=== PATIENT | female | born 1935 | race Caucasian/White ===

== ENCOUNTER 2017-03-16 10:35 | Inpatient (IN) ==
[2017-03-16 11:37] LABS: Basophils % 0.4 % (0.0-0.8); Eosinophils % 0.3 % (0.00-10.9); Hematocrit 40.8 VOL% (35.7-47.0); Hemoglobin 13.6 GM/DL (12.0-16.0); Immature Granulocytes % 2.1 %; Immature Granulocytes Absolute 0.21 #; Lymphocytes % 10.1 % (21.3-54.2); Mean Corpuscular HGB Conc 33.3 GM/DL (32-36); Mean Corpuscular Hemoglobin 31 PG (27-34); Mean Platelet Volume 9.6 FL (9.6-12.0); Monocytes # 0.9 10*3/uL (0.11-0.8); Monocytes % 8.7 % (1.7-12.7); Neutrophils % 78.4 % (38.7-73.9); Platelet Count 197 T/CUMM (130-400); Red Blood Count 4.34 MC/CUMM (3.8-5.5); Red Cell Distribution Width 13.7 % (9.3-17.3); White Blood Count 10.2 T/CUMM (4-12)
[2017-03-16 11:49] LABS: Amorphous Crystals,Urine Occasional /HPF (Few); Apearance,Urine Slightly Hazy (Clear); Bacteria,Urine Few /HPF (Few); Bilirubin,Urine Negative (Negative); Blood, Urine Small mg/dL (Negative); Glucose,Urine (UA) Negative (Negative); Ketones,Urine Negative (Negative); Mucus,Urine Occasional /LPF (Occasional); Nitrite,Urine Negative (Negative); Protein,Urine >=500 MG/DL; Squamous Epithelial Cell,Urine Occasional /HPF (0-10); Urine Color Yellow (Yellow); Urine Specific Gravity 1.018 (1.001-1.035); Urine Urobilinogen < 2.0 EU/DL (0.2-1.0)
[2017-03-16 12:08] LABS: Albumin 2.7 G/DL (3.4-5.0); Bilirubin,Total 0.6 MG/DL (0.2-1.0); Calcium 8.2 MG/DL (8.5-10.1); Osmolality,Calculated 284.7 MOS/KG (273-304); Potassium 3.8 MMOL/L (3.5-5.1); Total Protein 6.2 G/DL (6.4-8.3)
[2017-03-16] MEDS ORDERED: LEVOFLOXACIN INJ 500 MG in PREMIX 1 EACH IV STA (13:17)
[2017-03-16] MEDS ORDERED: LEVOFLOXACIN INJ 100 ML IV ONE (13:20)
[2017-03-16] MEDS ORDERED: ALBUTEROL 2.5 MG/3 ML NEB RESP TX STA (15:12)
[2017-03-16] MEDS ORDERED: ALBUTEROL 2.5 MG/3 ML NEB RESP TX PRN (15:20)
[2017-03-16] MEDS ORDERED: DOCUSATE SODIUM 100 MG CAPSULE PO PRN (15:41)
[2017-03-16] MEDS ORDERED: GLUCAGON 1 MG VIAL IM PRN (16:45)
[2017-03-16] MEDS ORDERED: DEXTROSE 50% 25 GM/50 ML VIAL IV PRN (16:45)
[2017-03-16] MEDS: INSULIN LISPRO 100 UNIT/ML SUBCUT SCH ×2 (17:57→21:09)
[2017-03-16] MEDS ORDERED: VANCOMYCIN INJ 1,500 MG in SODIUM CHLORIDE 0.9% 500 ML IV SCH (18:00)
[2017-03-16] MEDS: methylPREDNISolone SOD SUC 40 MG/1 ML VIAL IV SCH ×2 (18:48→22:44)
[2017-03-16] MEDS: CEFEPIME 2,000 MG in SYRINGE 1 EACH IV SCH (18:51)
[2017-03-16] MEDS: AZITHROMYCIN INJ 500 MG in SODIUM CHLORIDE 0.9% 250 ML IV SCH (18:53)
[2017-03-16] MEDS: ASPIRIN EC 81 MG TABLET PO SCH (18:56)
[2017-03-16] MEDS ORDERED: ACETAMINOPHEN 325 MG TABLET PO PRN (19:16)
[2017-03-16] MEDS: ALBUTEROL/IPRATROPIUM 3 ML NEB RESP TX SCH (20:09)
[2017-03-16] MEDS ORDERED: NYSTATIN 500,000 UNIT/5 ML UDCUP SWISH/SWAL SCH (21:00)
[2017-03-16] MEDS: NYSTATIN 500,000 UNIT/5 ML UDCUP SWISH/SWAL SCH (21:08)
[2017-03-16] MEDS: OSELTAMIVIR 30 MG CAPSULE PO SCH (21:11)
[2017-03-16] MEDS: TRIAMCINOLONE 0.1% CREAM 15 GM TUBE TOP SCH (22:16)
[2017-03-17] MEDS: ALBUTEROL/IPRATROPIUM 3 ML NEB RESP TX SCH ×4 (00:53→19:22)
[2017-03-17] MEDS: methylPREDNISolone SOD SUC 40 MG/1 ML VIAL IV SCH ×3 (05:22→23:56)
[2017-03-17] MEDS: CEFEPIME 2,000 MG in SYRINGE 1 EACH IV SCH ×2 (05:23→17:34)
[2017-03-17 06:15] LABS: Basophils % 0.1 % (0.0-0.8); Hematocrit 36.3 VOL% (35.7-47.0); Hemoglobin 12.1 GM/DL (12.0-16.0); Immature Granulocytes % 2.1 %; Immature Granulocytes Absolute 0.16 #; Lymphocytes # 0.5 10*3/uL (1.4-4.0); Lymphocytes % 6.4 % (21.3-54.2); Mean Corpuscular HGB Conc 33.3 GM/DL (32-36); Mean Corpuscular Hemoglobin 31 PG (27-34); Mean Corpuscular Volume 92.6 FL (87-102); Mean Platelet Volume 9.7 FL (9.6-12.0); Monocytes # 0.1 10*3/uL (0.11-0.8); Monocytes % 1.2 % (1.7-12.7); Neutrophils % 90.2 % (38.7-73.9); Platelet Count 185 T/CUMM (130-400); Red Blood Count 3.92 MC/CUMM (3.8-5.5); Red Cell Distribution Width 13.4 % (9.3-17.3); White Blood Count 7.7 T/CUMM (4-12)
[2017-03-17 06:40] LABS: Calcium 8.1 MG/DL (8.5-10.1); Osmolality,Calculated 290.2 MOS/KG (273-304); Potassium 3.9 MMOL/L (3.5-5.1)
[2017-03-17] MEDS: INSULIN LISPRO 100 UNIT/ML SUBCUT SCH ×4 (08:10→20:45)
[2017-03-17] MEDS: ASPIRIN EC 81 MG TABLET PO SCH (08:11)
[2017-03-17] MEDS: METOPROLOL SUCCINATE XL 50 MG TABLET PO SCH (08:19)
[2017-03-17] MEDS: CHOLECALCIFEROL 1,000 UNIT TABLET PO SCH (08:19)
[2017-03-17] MEDS: NYSTATIN 500,000 UNIT/5 ML UDCUP SWISH/SWAL SCH ×4 (08:22→21:49)
[2017-03-17] MEDS: OSELTAMIVIR 30 MG CAPSULE PO SCH ×2 (08:36→23:56)
[2017-03-17] MEDS ORDERED: LEVOFLOXACIN INJ 250 MG in PREMIX 1 EACH IV SCH (13:30)
[2017-03-17] MEDS: ENOXAPARIN 30 MG/0.3 ML SYRINGE SUBCUT SCH (16:23)
[2017-03-17] MEDS: TRIAMCINOLONE 0.1% CREAM 15 GM TUBE TOP SCH (18:57)
[2017-03-17] MEDS: amLODIPine 5 MG TABLET PO SCH (18:59)
[2017-03-17] MEDS: AZITHROMYCIN INJ 500 MG in SODIUM CHLORIDE 0.9% 250 ML IV SCH (19:03)
[2017-03-17] MEDS: FAMOTIDINE 20 MG TABLET PO SCH (21:48)
[2017-03-17] MEDS: POTASSIUM CHLORIDE 20 MEQ TABLET PO SCH (21:49)
[2017-03-17] MEDS: FUROSEMIDE 20 MG TABLET PO SCH (21:49)
[2017-03-18] MEDS: ALBUTEROL/IPRATROPIUM 3 ML NEB RESP TX SCH ×4 (00:39→19:03)
[2017-03-18] MEDS: CEFEPIME 2,000 MG in SYRINGE 1 EACH IV SCH (04:49)
[2017-03-18] MEDS: TRIAMCINOLONE 0.1% CREAM 15 GM TUBE TOP SCH ×3 (05:32→21:56)
[2017-03-18 06:56] LABS: Calcium 8.5 MG/DL (8.5-10.1); Osmolality,Calculated 290.1 MOS/KG (273-304); Potassium 4.4 MMOL/L (3.5-5.1)
[2017-03-18 08:11] LABS: Basophils % 0.2 % (0.0-0.8); Hematocrit 35.4 VOL% (35.7-47.0); Hemoglobin 12.3 GM/DL (12.0-16.0); Immature Granulocytes % 1.2 %; Immature Granulocytes Absolute 0.22 #; Lymphocytes # 0.8 10*3/uL (1.4-4.0); Lymphocytes % 4.3 % (21.3-54.2); Mean Corpuscular HGB Conc 34.7 GM/DL (32-36); Mean Corpuscular Hemoglobin 31 PG (27-34); Mean Corpuscular Volume 89.8 FL (87-102); Monocytes # 0.6 10*3/uL (0.11-0.8); Neutrophils # 16.9 10*3/uL (1.4-7.4); Neutrophils % 91.3 % (38.7-73.9); Platelet Count 215 T/CUMM (130-400); Red Blood Count 3.94 MC/CUMM (3.8-5.5); Red Cell Distribution Width 13.2 % (9.3-17.3); White Blood Count 18.5 T/CUMM (4-12)
[2017-03-18] MEDS: INSULIN LISPRO 100 UNIT/ML SUBCUT SCH ×4 (08:37→21:56)
[2017-03-18 08:38] LABS: Band Neutrophils 3 % (0-10); Lymphocytes 3 % (20-55); Segmented Neutrophils 92 % (50-85); Total Cells Counted 100
[2017-03-18 08:39] LABS: Giant Platelets Few; Hypochromasia Slight; Ovalocytes Slight; Platelet Estimate Adequate
[2017-03-18] MEDS: NYSTATIN 500,000 UNIT/5 ML UDCUP SWISH/SWAL SCH ×4 (10:18→21:56)
[2017-03-18] MEDS: OSELTAMIVIR 30 MG CAPSULE PO SCH ×2 (10:18→21:56)
[2017-03-18] MEDS: FUROSEMIDE 20 MG TABLET PO SCH ×2 (10:20→21:56)
[2017-03-18] MEDS: ASPIRIN EC 81 MG TABLET PO SCH (10:20)
[2017-03-18] MEDS: CHOLECALCIFEROL 1,000 UNIT TABLET PO SCH (10:20)
[2017-03-18] MEDS: FAMOTIDINE 20 MG TABLET PO SCH ×2 (10:21→21:56)
[2017-03-18] MEDS: POTASSIUM CHLORIDE 20 MEQ TABLET PO SCH ×2 (10:21→21:55)
[2017-03-18] MEDS: METOPROLOL SUCCINATE XL 50 MG TABLET PO SCH (10:22)
[2017-03-18] MEDS: NYSTATIN OINT 15 GM TUBE TOP SCH (12:11)
[2017-03-18] MEDS: NYSTATIN POWDER 15 GM BOTTLE TOP SCH (12:11)
[2017-03-18] MEDS: CEFDINIR 300 MG CAPSULE PO SCH ×2 (12:14→21:56)
[2017-03-18] MEDS: predniSONE 20 MG TABLET PO SCH (12:15)
[2017-03-18] MEDS: AZITHROMYCIN 250 MG TABLET PO SCH (12:15)
[2017-03-18] MEDS: methylPREDNISolone SOD SUC 40 MG/1 ML VIAL IV SCH (16:53)
[2017-03-18] MEDS: ENOXAPARIN 30 MG/0.3 ML SYRINGE SUBCUT SCH (17:01)
[2017-03-18] MEDS: amLODIPine 5 MG TABLET PO SCH (17:02)
[2017-03-19] MEDS: ALBUTEROL/IPRATROPIUM 3 ML NEB RESP TX SCH ×5 (00:34→19:25)
[2017-03-19] MEDS: NYSTATIN POWDER 15 GM BOTTLE TOP SCH ×3 (04:53→20:47)
[2017-03-19] MEDS: NYSTATIN OINT 15 GM TUBE TOP SCH ×3 (04:53→20:47)
[2017-03-19] MEDS: INSULIN LISPRO 100 UNIT/ML SUBCUT SCH ×4 (08:23→20:46)
[2017-03-19] MEDS ORDERED: LEVOFLOXACIN 500 MG TABLET PO SCH (09:00)
[2017-03-19] MEDS: NYSTATIN 500,000 UNIT/5 ML UDCUP SWISH/SWAL SCH ×4 (09:04→20:45)
[2017-03-19] MEDS: POTASSIUM CHLORIDE 20 MEQ TABLET PO SCH ×2 (09:04→20:45)
[2017-03-19] MEDS: predniSONE 20 MG TABLET PO SCH (09:05)
[2017-03-19] MEDS: FAMOTIDINE 20 MG TABLET PO SCH ×2 (09:05→20:47)
[2017-03-19] MEDS: FUROSEMIDE 20 MG TABLET PO SCH ×3 (09:05→20:47)
[2017-03-19] MEDS: CHOLECALCIFEROL 1,000 UNIT TABLET PO SCH (09:05)
[2017-03-19] MEDS: ASPIRIN EC 81 MG TABLET PO SCH (09:05)
[2017-03-19] MEDS: OSELTAMIVIR 30 MG CAPSULE PO SCH (09:05)
[2017-03-19] MEDS: AZITHROMYCIN 250 MG TABLET PO SCH (09:05)
[2017-03-19] MEDS: METOPROLOL SUCCINATE XL 50 MG TABLET PO SCH (09:05)
[2017-03-19] MEDS: TRIAMCINOLONE 0.1% CREAM 15 GM TUBE TOP SCH ×2 (10:24→20:48)
[2017-03-19] MEDS: ENOXAPARIN 30 MG/0.3 ML SYRINGE SUBCUT SCH (16:06)
[2017-03-19] MEDS: amLODIPine 5 MG TABLET PO SCH (18:18)
[2017-03-20] MEDS: ALBUTEROL/IPRATROPIUM 3 ML NEB RESP TX SCH ×2 (01:28→07:09)
[2017-03-20] MEDS: INSULIN LISPRO 100 UNIT/ML SUBCUT SCH ×2 (07:52→12:38)
[2017-03-20] MEDS ORDERED: LEVOFLOXACIN 250 MG TABLET PO SCH (09:00)
[2017-03-20] MEDS ORDERED: LEVOFLOXACIN INJ 250 MG in PREMIX 1 EACH IV SCH (09:00)
[2017-03-20] MEDS: ASPIRIN EC 81 MG TABLET PO SCH (09:37)
[2017-03-20] MEDS: POTASSIUM CHLORIDE 20 MEQ TABLET PO SCH (09:37)
[2017-03-20] MEDS: TRIAMCINOLONE 0.1% CREAM 15 GM TUBE TOP SCH (09:38)
[2017-03-20] MEDS: NYSTATIN POWDER 15 GM BOTTLE TOP SCH (09:39)
[2017-03-20] MEDS: NYSTATIN OINT 15 GM TUBE TOP SCH (09:39)
[2017-03-20] MEDS: FUROSEMIDE 20 MG TABLET PO SCH (09:39)
[2017-03-20] MEDS: NYSTATIN 500,000 UNIT/5 ML UDCUP SWISH/SWAL SCH ×2 (09:39→12:38)
[2017-03-20] MEDS: METOPROLOL SUCCINATE XL 50 MG TABLET PO SCH (09:40)
[2017-03-20] MEDS: AZITHROMYCIN 250 MG TABLET PO SCH (09:40)
[2017-03-20] MEDS: CHOLECALCIFEROL 1,000 UNIT TABLET PO SCH (09:40)
[2017-03-20] MEDS: predniSONE 20 MG TABLET PO SCH (09:40)
[2017-03-20] MEDS: FAMOTIDINE 20 MG TABLET PO SCH (09:40)
[2017-03-20 11:26] VITALS: BP 158/69
== END 2017-03-20 13:45 | disposition swing bed (61) | DRG 194 ==
LOC: EDUNIT# → EDBD → N.ED 10:35 → N.EDINP 13:28 → SUATTDRO 13:28 → N.3E 16:20
PROVIDERS: ADMIT Internal Medicine; ATTEND Hospitalist

== ENCOUNTER 2017-04-28 18:58 | Inpatient (IN) ==
[2017-04-28 20:40] LABS: Basophils # 0.1 10*3/uL (0.0-0.2); Basophils % 0.6 % (0.0-0.8); Eosinophils % 0.5 % (0.00-10.9); Hematocrit 30.2 VOL% (35.7-47.0); Immature Granulocytes % 6.4 %; Immature Granulocytes Absolute 0.54 #; Lymphocytes # 1.9 10*3/uL (1.4-4.0); Lymphocytes % 22.8 % (21.3-54.2); Mean Corpuscular HGB Conc 33.1 GM/DL (32-36); Mean Corpuscular Hemoglobin 31 PG (27-34); Mean Corpuscular Volume 94.1 FL (87-102); Mean Platelet Volume 9.4 FL (9.6-12.0); Monocytes % 12.4 % (1.7-12.7); NRBC # 0.02 10*3/uL; Neutrophils # 4.8 10*3/uL (1.4-7.4); Neutrophils % 57.3 % (38.7-73.9); Platelet Count 220 T/CUMM (130-400); Red Blood Count 3.21 MC/CUMM (3.8-5.5); Red Cell Distribution Width 15.7 % (9.3-17.3); White Blood Count 8.4 T/CUMM (4-12)
[2017-04-28 21:04] LABS: INR 0.9; PT Patient Result 9.6 SECS; Partial Thromboplastin Time 23.1 SECS (0-40)
[2017-04-28 21:12] LABS: Alanine Aminotransferase 34 U/L (13-56); Albumin 2.6 G/DL (3.4-5.0); Alkaline Phosphatase 51 U/L (45-117); Aspartate Amino Transferase 16 U/L (0-37); Blood Urea Nitrogen 16 MG/DL (7-18); Calcium 8.3 MG/DL (8.5-10.1); Glucose 122 MG/DL (74-106); Osmolality,Calculated 269.2 MOS/KG (273-304); Potassium 3.8 MMOL/L (3.5-5.1); Sodium 134 MMOL/L (136-145); Troponin I Only < 0.015 NG/ML (0.00-0.045)
[2017-04-28] MEDS ORDERED: FUROSEMIDE 40 MG/4 ML VIAL IV STA (21:58)
[2017-04-28 22:17] LABS: Band Neutrophils 2 % (0-10); Lymphocytes 25 % (20-55); Macrocytosis 1+; Platelet Estimate Normal; Segmented Neutrophils 62 % (50-85); Total Cells Counted 100
[2017-04-28] MEDS ORDERED: FUROSEMIDE 40 MG/4 ML VIAL ONE (22:55)
[2017-04-29] MEDS ORDERED: ONDANSETRON 4 MG/2 ML VIAL IV PRN (00:51)
[2017-04-29] MEDS ORDERED: DEXTROSE 50% 25 GM/50 ML VIAL IV PRN (00:51)
[2017-04-29] MEDS ORDERED: MORPHINE 2 MG/1 ML SYRINGE IV PRN (00:51)
[2017-04-29] MEDS ORDERED: GLUCAGON 1 MG VIAL IM PRN (00:51)
[2017-04-29] MEDS: POTASSIUM CHLORIDE 20 MEQ TABLET PO SCH ×3 (02:42→21:44)
[2017-04-29] MEDS ORDERED: ALBUTEROL 2.5 MG/3 ML NEB RESP TX PRN (03:00)
[2017-04-29 07:01] LABS: Risk Ratio 7.35; VLDL CHOLESTEROL 57.4 MG/DL
[2017-04-29] MEDS: sitaGLIPtin 25 MG TABLET PO SCH (08:46)
[2017-04-29] MEDS: METOPROLOL SUCCINATE XL 50 MG TABLET PO SCH (08:46)
[2017-04-29] MEDS: ASPIRIN EC 81 MG TABLET PO SCH (08:46)
[2017-04-29] MEDS: DOCUSATE SODIUM 100 MG CAPSULE PO SCH ×2 (08:46→21:44)
[2017-04-29] MEDS: FUROSEMIDE 40 MG TABLET PO SCH ×2 (08:46→15:59)
[2017-04-29] MEDS: INSULIN REGULAR 100 UNIT/ML SUBCUT SCH ×4 (08:47→21:44)
[2017-04-29] MEDS: PANTOPRAZOLE 40 MG VIAL IV SCH (08:47)
[2017-04-29] MEDS: ENOXAPARIN 30 MG/0.3 ML SYRINGE SUBCUT SCH ×2 (08:47→08:48)
[2017-04-29] MEDS: amLODIPine 5 MG TABLET PO SCH (17:11)
[2017-04-30 05:11] LABS: Basophils % 0.5 % (0.0-0.8); Eosinophils # 0.1 10*3/uL (0.0-0.87); Eosinophils % 0.8 % (0.00-10.9); Hematocrit 30.8 VOL% (35.7-47.0); Hemoglobin 10.3 GM/DL (12.0-16.0); Immature Granulocytes % 7.1 %; Immature Granulocytes Absolute 0.47 #; Lymphocytes # 1.5 10*3/uL (1.4-4.0); Lymphocytes % 22.7 % (21.3-54.2); Mean Corpuscular HGB Conc 33.4 GM/DL (32-36); Mean Corpuscular Hemoglobin 31 PG (27-34); Mean Corpuscular Volume 93.9 FL (87-102); Mean Platelet Volume 9.8 FL (9.6-12.0); Monocytes # 0.8 10*3/uL (0.11-0.8); Monocytes % 11.9 % (1.7-12.7); Neutrophils # 3.8 10*3/uL (1.4-7.4); Platelet Count 255 T/CUMM (130-400); Red Blood Count 3.28 MC/CUMM (3.8-5.5); Red Cell Distribution Width 15.8 % (9.3-17.3); White Blood Count 6.6 T/CUMM (4-12)
[2017-04-30 05:20] LABS: Calcium 7.6 MG/DL (8.5-10.1); Osmolality,Calculated 276.8 MOS/KG (273-304); Potassium 3.5 MMOL/L (3.5-5.1)
[2017-04-30 05:27] LABS: % Iron Saturation 20.9 % (18-50); Ferritin 167.1 ng/ml (8-252)
[2017-04-30 05:39] LABS: Band Neutrophils 5 % (0-10); Giant Platelets Few; Hypochromasia 1+; Lymphocytes 21 % (20-55); Myelocytes 1 %; Nucleated Red Blood Cells 1 (0-5); Ovalocytes Slight; Platelet Estimate Adequate; Segmented Neutrophils 62 % (50-85); Total Cells Counted 100
[2017-04-30 06:26] LABS: Sedimentation Rate-Westergren 83 MM/HR (0-30)
[2017-04-30 07:20] LABS: Folate 7.8 NG/ML (5.4-24.0); Vitamin B12 400 PG/ML (211-911)
[2017-04-30 09:27] LABS: Hemoglobin A1 (Alkaline) 97.1 % (96.5-98.5); Hemoglobin A2 (Alkaline) 2.9 % (1.5-3.5)
[2017-04-30] MEDS ORDERED: LIDOCAINE 2% 5 ML VIAL ONE (09:41)
[2017-04-30] MEDS ORDERED: PROPOFOL 200 MG/20 ML VIAL IV ONE (09:41)
[2017-04-30] MEDS: PANTOPRAZOLE 40 MG VIAL IV SCH ×3 (10:36→21:55)
[2017-04-30] MEDS: INSULIN REGULAR 100 UNIT/ML SUBCUT SCH ×4 (10:41→21:55)
[2017-04-30] MEDS: DOCUSATE SODIUM 100 MG CAPSULE PO SCH ×2 (10:48→22:42)
[2017-04-30] MEDS: METOPROLOL SUCCINATE XL 50 MG TABLET PO SCH (10:48)
[2017-04-30] MEDS: sitaGLIPtin 25 MG TABLET PO SCH (10:48)
[2017-04-30] MEDS: FUROSEMIDE 40 MG TABLET PO SCH ×2 (10:48→15:44)
[2017-04-30] MEDS: POTASSIUM CHLORIDE 20 MEQ TABLET PO SCH ×2 (10:48→21:54)
[2017-04-30] MEDS: ASPIRIN EC 81 MG TABLET PO SCH (10:48)
[2017-04-30] MEDS ORDERED: BISACODYL 10 MG SUPP RECTAL PRN (15:41)
[2017-04-30] MEDS: POLYETHYLENE GLYCOL POWDER 17 GM PACK PO SCH ×2 (15:45→22:42)
[2017-04-30] MEDS: amLODIPine 5 MG TABLET PO SCH (17:29)
[2017-05-01 05:42] LABS: White Blood Count 7.1 T/CUMM (4-12)
[2017-05-01 05:43] LABS: Basophils % 0.6 % (0.0-0.8); Eosinophils # 0.1 10*3/uL (0.0-0.87); Eosinophils % 1.1 % (0.00-10.9); Hematocrit 30.8 VOL% (35.7-47.0); Hemoglobin 10.4 GM/DL (12.0-16.0); Immature Granulocytes % 4.4 %; Immature Granulocytes Absolute 0.31 #; Lymphocytes % 28.2 % (21.3-54.2); Mean Corpuscular HGB Conc 33.8 GM/DL (32-36); Mean Corpuscular Hemoglobin 32 PG (27-34); Mean Corpuscular Volume 93.3 FL (87-102); Monocytes # 1.1 10*3/uL (0.11-0.8); Monocytes % 15.3 % (1.7-12.7); Neutrophils # 3.6 10*3/uL (1.4-7.4); Neutrophils % 50.4 % (38.7-73.9); Platelet Count 268 T/CUMM (130-400); Red Cell Distribution Width 15.9 % (9.3-17.3)
[2017-05-01 06:10] LABS: Calcium 7.6 MG/DL (8.5-10.1); Potassium 3.7 MMOL/L (3.5-5.1)
[2017-05-01] MEDS: INSULIN REGULAR 100 UNIT/ML SUBCUT SCH ×4 (07:46→21:36)
[2017-05-01] MEDS: POLYETHYLENE GLYCOL POWDER 17 GM PACK PO SCH ×2 (08:40→22:29)
[2017-05-01] MEDS: POTASSIUM CHLORIDE 20 MEQ TABLET PO SCH ×2 (08:41→21:35)
[2017-05-01] MEDS: PANTOPRAZOLE 40 MG VIAL IV SCH ×3 (08:41→21:36)
[2017-05-01] MEDS: DOCUSATE SODIUM 100 MG CAPSULE PO SCH ×2 (08:41→22:29)
[2017-05-01] MEDS: FUROSEMIDE 40 MG TABLET PO SCH ×2 (08:41→15:43)
[2017-05-01] MEDS: sitaGLIPtin 25 MG TABLET PO SCH (08:41)
[2017-05-01] MEDS: ASPIRIN EC 81 MG TABLET PO SCH (08:41)
[2017-05-01] MEDS: METOPROLOL SUCCINATE XL 50 MG TABLET PO SCH (08:41)
[2017-05-01] MEDS: amLODIPine 5 MG TABLET PO SCH (17:31)
[2017-05-01 22:19] LABS: Free T4 (Free Thyroxine) 0.93 NG/DL (0.76-1.46); Thyroid Stimulating Hormone 3.75 uIU/ml (0.358-3.74)
[2017-05-02 01:45] LABS: Apearance,Urine CLEAR (Clear); Bilirubin,Urine Negative (Negative); Blood, Urine Negative (Negative); Glucose,Urine (UA) 50 mg/dL (Negative); Hyaline Casts,Urine 1 /LPF (0-3); Ketones,Urine Negative (Negative); Mucus,Urine Occasional /LPF (Occasional); Nitrite,Urine Negative (Negative); Protein,Urine Negative; Squamous Epithelial Cell,Urine Occasional /HPF (0-10); Urine Color Straw (Yellow); Urine Specific Gravity 1.004 (1.001-1.035); Urine Urobilinogen < 2.0 EU/DL (0.2-1.0)
[2017-05-02 04:57] LABS: Basophils # 0.1 10*3/uL (0.0-0.2); Basophils % 0.6 % (0.0-0.8); Eosinophils # 0.1 10*3/uL (0.0-0.87); Eosinophils % 0.8 % (0.00-10.9); Hematocrit 28.7 VOL% (35.7-47.0); Hemoglobin 9.7 GM/DL (12.0-16.0); Immature Granulocytes % 3.8 %; Immature Granulocytes Absolute 0.32 #; Lymphocytes # 2.2 10*3/uL (1.4-4.0); Lymphocytes % 26.8 % (21.3-54.2); Mean Corpuscular HGB Conc 33.8 GM/DL (32-36); Mean Corpuscular Hemoglobin 31 PG (27-34); Mean Corpuscular Volume 92.3 FL (87-102); Mean Platelet Volume 9.3 FL (9.6-12.0); Monocytes # 1.1 10*3/uL (0.11-0.8); Monocytes % 13.4 % (1.7-12.7); Neutrophils # 4.6 10*3/uL (1.4-7.4); Neutrophils % 54.6 % (38.7-73.9); Platelet Count 262 T/CUMM (130-400); Red Blood Count 3.11 MC/CUMM (3.8-5.5); Red Cell Distribution Width 16.1 % (9.3-17.3); White Blood Count 8.4 T/CUMM (4-12)
[2017-05-02 05:24] LABS: Band Neutrophils 1 % (0-10); Eosinophils 1 % (0-10); Giant Platelets Few; Hypochromasia 1+; Lymphocytes 21 % (20-55); Platelet Estimate Adequate; Segmented Neutrophils 59 % (50-85); Total Cells Counted 100
[2017-05-02 05:30] LABS: Calcium 7.5 MG/DL (8.5-10.1); Osmolality,Calculated 274.1 MOS/KG (273-304); Potassium 3.4 MMOL/L (3.5-5.1)
[2017-05-02] MEDS ORDERED: metOLazone 5 MG TABLET PO ONE (09:00)
[2017-05-02] MEDS: sitaGLIPtin 25 MG TABLET PO SCH (09:42)
[2017-05-02] MEDS: POTASSIUM CHLORIDE 20 MEQ TABLET PO SCH (09:42)
[2017-05-02] MEDS: FUROSEMIDE 40 MG TABLET PO SCH (09:43)
[2017-05-02] MEDS: DOCUSATE SODIUM 100 MG CAPSULE PO SCH (09:43)
[2017-05-02] MEDS: PANTOPRAZOLE 40 MG VIAL IV SCH ×2 (09:44)
[2017-05-02] MEDS: METOPROLOL SUCCINATE XL 50 MG TABLET PO SCH (09:44)
[2017-05-02] MEDS: ASPIRIN EC 81 MG TABLET PO SCH (09:45)
[2017-05-02] MEDS: INSULIN REGULAR 100 UNIT/ML SUBCUT SCH ×2 (09:45→11:52)
[2017-05-02] MEDS: POLYETHYLENE GLYCOL POWDER 17 GM PACK PO SCH (09:45)
[2017-05-02] MEDS ORDERED: CHOLECALCIFEROL 1,000 UNIT TABLET PO SCH (11:00)
[2017-05-02 11:46] VITALS: BP 113/54
[2017-05-02] MEDS ORDERED: MONTELUKAST 10 MG TABLET PO SCH (12:30)
[2017-05-02] MEDS ORDERED: predniSONE 10 MG TABLET PO SCH (12:30)
[2017-05-05 14:00] LABS: Anti SS-A Antibodies < 16 EU/ML; Anti SS-B Antibodies < 16 EU/ML; Double Stranded DNA Antibodies 69.6 IU/ML
[2017-05-08 11:23] LABS: Anti-Nuclear Antibody Pattern HOMOGENEOUS
== END 2017-05-02 14:39 | disposition swing bed (61) | DRG 291 ==
LOC: EDBD → EDUNIT# → N.ED 18:58 → N.EDINP 22:48 → N.TELES 23:31
PROVIDERS: ADMIT Hospitalist; ATTEND Hospitalist

== ENCOUNTER 2018-08-19 22:53 | Inpatient (IN) ==
[2018-08-19] MEDS ORDERED: FUROSEMIDE 100 MG/10 ML VIAL IV STA (23:27)
[2018-08-19] MEDS ORDERED: ONDANSETRON 4 MG/2 ML VIAL IV STA (23:27)
[2018-08-19] MEDS ORDERED: ALBUTEROL/IPRATROPIUM 3 ML NEB RESP TX STA (23:27)
[2018-08-19 23:34] LABS: Basophils # 0.1 10*3/uL (0.0-0.2); Basophils % 0.3 % (0.0-0.8); Eosinophils # 0.1 10*3/uL (0.0-0.87); Eosinophils % 0.6 % (0.00-10.9); Hematocrit 23.9 VOL% (35.7-47.0); Hemoglobin 7.2 GM/DL (12.0-16.0); Immature Granulocytes % 0.8 %; Immature Granulocytes Absolute 0.12 #; Lymphocytes # 1.2 10*3/uL (1.4-4.0); Lymphocytes % 7.7 % (21.3-54.2); Mean Corpuscular HGB Conc 30.1 GM/DL (32-36); Mean Corpuscular Volume 77.6 FL (87-102); Mean Platelet Volume 9.3 FL (9.6-12.0); Monocytes % 8.6 % (1.7-12.7); Platelet Count 496 T/CUMM (130-400); Red Blood Count 3.08 MC/CUMM (3.8-5.5); Red Cell Distribution Width 17.4 % (9.3-17.3); White Blood Count 15.9 T/CUMM (4-12)
[2018-08-19 23:38] LABS: INR 0.9; PT Patient Result 10.1 SECS
[2018-08-19 23:48] LABS: Albumin 3.4 G/DL (3.4-5.0); Bilirubin,Total 0.4 MG/DL (0.2-1.0); Calcium 8.5 MG/DL (8.5-10.1); Osmolality,Calculated 265.1 MOS/KG (273-304); Total Protein 7.7 G/DL (6.4-8.3)
[2018-08-20 00:43] LABS: Apearance,Urine CLEAR (Clear); Bilirubin,Urine Negative (Negative); Blood, Urine Negative (Negative); Glucose,Urine (UA) Negative (Negative); Ketones,Urine Negative (Negative); Nitrite,Urine Negative (Negative); Protein,Urine 30 MG/DL; RBC,Urine 2 /HPF (0-4); Squamous Epithelial Cell,Urine Occasional /HPF (0-10); Urine Color Yellow (Yellow); Urine Specific Gravity 1.008 (1.001-1.035); Urine Urobilinogen < 2.0 EU/DL (0.2-1.0); WBC,Urine <1 /HPF (0-6)
[2018-08-20] MEDS ORDERED: ONDANSETRON 4 MG/2 ML VIAL IV PRN (01:45)
[2018-08-20] MEDS ORDERED: ACETAMINOPHEN 325 MG TABLET PO PRN (01:45)
[2018-08-20] MEDS ORDERED: NICOTINE 21 MG/24 HR PATCH TRANSDERM PRN (01:45)
[2018-08-20] MEDS ORDERED: PANTOPRAZOLE 40 MG VIAL IV SCH (02:00)
[2018-08-20] MEDS ORDERED: cefTRIAXone 1,000 MG in SYRINGE 1 EACH IV SCH (02:00)
[2018-08-20] MEDS: FUROSEMIDE 20 MG/2 ML VIAL IV SCH ×2 (08:33→16:36)
[2018-08-20] MEDS: PANTOPRAZOLE 40 MG TABLET PO SCH ×3 (08:35→21:27)
[2018-08-20] MEDS ORDERED: SODIUM CHLORIDE 0.9% 1,000 ML IV PRN (08:38)
[2018-08-20 08:51] LABS: Calcium 8.4 MG/DL (8.5-10.1); Osmolality,Calculated 264.1 MOS/KG (273-304)
[2018-08-20 10:44] LABS: Basophils # 0.1 10*3/uL (0.0-0.2); Basophils % 0.4 % (0.0-0.8); Eosinophils # 0.1 10*3/uL (0.0-0.87); Eosinophils % 0.8 % (0.00-10.9); Hematocrit 23.1 VOL% (35.7-47.0); Hemoglobin 6.9 GM/DL (12.0-16.0); Immature Granulocytes % 0.8 %; Lymphocytes # 1.5 10*3/uL (1.4-4.0); Lymphocytes % 12.8 % (21.3-54.2); Mean Corpuscular HGB Conc 29.9 GM/DL (32-36); Mean Corpuscular Volume 78.6 FL (87-102); Mean Platelet Volume 9.6 FL (9.6-12.0); Monocytes % 13.5 % (1.7-12.7); Neutrophils % 71.7 % (38.7-73.9); Platelet Count 502 T/CUMM (130-400); Red Blood Count 2.94 MC/CUMM (3.8-5.5); Red Cell Distribution Width 17.3 % (9.3-17.3)
[2018-08-20 11:02] LABS: Folate 14.5 NG/ML (5.4-24.0); Vitamin B12 954 PG/ML (211-911)
[2018-08-20] MEDS ORDERED: ALBUTEROL/IPRATROPIUM 3 ML NEB RESP TX PRN (11:25)
[2018-08-20] MEDS ORDERED: GLUCAGON 1 MG VIAL IM PRN ×2 (11:32→13:14)
[2018-08-20] MEDS ORDERED: DEXTROSE 50% 25 GM/50 ML VIAL IV PRN ×2 (11:32→13:14)
[2018-08-20] MEDS ORDERED: methylPREDNISolone SOD SUC 40 MG/1 ML VIAL ONE (11:38)
[2018-08-20 11:47] LABS: Sedimentation Rate-Westergren 91 MM/HR (0-30)
[2018-08-20] MEDS: methylPREDNISolone SOD SUC 40 MG/1 ML VIAL IV SCH ×2 (12:03→21:28)
[2018-08-20] MEDS ORDERED: ALBUTEROL 2.5 MG/3 ML NEB RESP TX PRN (13:30)
[2018-08-20 17:06] LABS: % Iron Saturation 6.2 % (18-50)
[2018-08-20] MEDS: INSULIN REGULAR 100 UNIT/ML SUBCUT SCH ×2 (17:22→22:42)
[2018-08-20] MEDS: ALBUTEROL/IPRATROPIUM 3 ML NEB RESP TX SCH (19:32)
[2018-08-20] MEDS: guaiFENesin/DM ER 600-30 MG TABLET PO SCH (21:27)
[2018-08-21] MEDS: ALBUTEROL/IPRATROPIUM 3 ML NEB RESP TX SCH ×4 (00:07→19:20)
[2018-08-21 05:47] LABS: Basophils % 0.1 % (0.0-0.8); Hematocrit 28.4 VOL% (35.7-47.0); Immature Granulocytes % 1.1 %; Immature Granulocytes Absolute 0.12 #; Lymphocytes # 0.6 10*3/uL (1.4-4.0); Lymphocytes % 5.2 % (21.3-54.2); Mean Corpuscular HGB Conc 31.3 GM/DL (32-36); Mean Corpuscular Volume 78.5 FL (87-102); Mean Platelet Volume 9.7 FL (9.6-12.0); Monocytes % 3.1 % (1.7-12.7); Neutrophils % 90.5 % (38.7-73.9); Platelet Count 465 T/CUMM (130-400); Red Blood Count 3.62 MC/CUMM (3.8-5.5); Red Cell Distribution Width 16.9 % (9.3-17.3); White Blood Count 10.9 T/CUMM (4-12)
[2018-08-21 05:48] LABS: Hemoglobin 8.9 GM/DL (12.0-16.0)
[2018-08-21 06:07] LABS: Calcium 8.6 MG/DL (8.5-10.1); Osmolality,Calculated 274.2 MOS/KG (273-304)
[2018-08-21] MEDS: methylPREDNISolone SOD SUC 40 MG/1 ML VIAL IV SCH ×2 (06:48→21:22)
[2018-08-21] MEDS ORDERED: LACTATED RINGERS 1,000 ML IV SCH (08:00)
[2018-08-21 08:39] LABS: Hemoglobin A1 (Alkaline) 97.3 % (96.5-98.5); Hemoglobin A2 (Alkaline) 2.7 % (1.5-3.5)
[2018-08-21] MEDS ORDERED: PROPOFOL 200 MG/20 ML VIAL IV ONE (09:00)
[2018-08-21] MEDS ORDERED: LIDOCAINE 2% 5 ML VIAL ONE (09:00)
[2018-08-21] MEDS: FUROSEMIDE 20 MG/2 ML VIAL IV SCH (09:34)
[2018-08-21] MEDS: INSULIN REGULAR 100 UNIT/ML SUBCUT SCH ×4 (09:37→21:21)
[2018-08-21] MEDS: cefTRIAXone 1,000 MG in SYRINGE 1 EACH IV SCH (09:38)
[2018-08-21] MEDS: CALCIUM (CARBONATE)/VITAMIN D 600 MG-400 UNIT TABLET PO SCH (11:11)
[2018-08-21] MEDS: MULTIVITAMIN (OCUVITE) TABLET PO SCH (11:11)
[2018-08-21] MEDS: DOCUSATE SODIUM 100 MG CAPSULE PO SCH (11:11)
[2018-08-21] MEDS: PANTOPRAZOLE 40 MG TABLET PO SCH ×2 (11:12→21:21)
[2018-08-21] MEDS: AZITHROMYCIN 250 MG TABLET PO SCH (12:26)
[2018-08-21] MEDS: sitaGLIPtin 25 MG TABLET PO SCH (12:27)
[2018-08-21] MEDS: METOPROLOL SUCCINATE XL 50 MG TABLET PO SCH (12:27)
[2018-08-21] MEDS: MAGNESIUM HYDROXIDE SUSP 30 ML UDCUP PO PRN ×2 (14:15→21:21)
[2018-08-21] MEDS: glipiZIDE 10 MG TABLET PO SCH (15:59)
[2018-08-21] MEDS ORDERED: BISACODYL 10 MG SUPP RECTAL ONE (17:13)
[2018-08-21] MEDS: FERROUS SULFATE 300 MG/5 ML UDCUP PO SCH (21:21)
[2018-08-21] MEDS: guaiFENesin/DM ER 600-30 MG TABLET PO SCH (21:21)
[2018-08-22] MEDS: ALBUTEROL/IPRATROPIUM 3 ML NEB RESP TX SCH ×4 (00:30→19:31)
[2018-08-22] MEDS: guaiFENesin 200 MG/10 ML UDCUP PO SCH ×3 (04:13→21:56)
[2018-08-22 05:44] LABS: Basophils % 0.1 % (0.0-0.8); Hematocrit 29.2 VOL% (35.7-47.0); Immature Granulocytes % 0.8 %; Immature Granulocytes Absolute 0.14 #; Lymphocytes # 0.6 10*3/uL (1.4-4.0); Lymphocytes % 3.1 % (21.3-54.2); Mean Corpuscular HGB Conc 30.8 GM/DL (32-36); Mean Platelet Volume 9.7 FL (9.6-12.0); Monocytes % 4.2 % (1.7-12.7); Neutrophils % 91.8 % (38.7-73.9); Platelet Count 541 T/CUMM (130-400); Red Blood Count 3.65 MC/CUMM (3.8-5.5); Red Cell Distribution Width 17.3 % (9.3-17.3)
[2018-08-22 06:02] LABS: Calcium 8.9 MG/DL (8.5-10.1); Osmolality,Calculated 277.8 MOS/KG (273-304)
[2018-08-22 07:47] LABS: Hypochromasia 2+; Lymphocytes 6 % (20-55); Platelet Estimate Increased; Segmented Neutrophils 90 % (50-85); Total Cells Counted 100
[2018-08-22] MEDS ORDERED: predniSONE 20 MG TABLET PO SCH ×2 (09:00)
[2018-08-22] MEDS: glipiZIDE 10 MG TABLET PO SCH ×2 (09:06→16:59)
[2018-08-22] MEDS: DOCUSATE SODIUM 100 MG CAPSULE PO SCH ×2 (09:06→21:57)
[2018-08-22] MEDS: PANTOPRAZOLE 40 MG TABLET PO SCH ×2 (09:06→21:57)
[2018-08-22] MEDS: sitaGLIPtin 25 MG TABLET PO SCH (09:06)
[2018-08-22] MEDS: FERROUS SULFATE 300 MG/5 ML UDCUP PO SCH ×2 (09:07→21:56)
[2018-08-22] MEDS: CALCIUM (CARBONATE)/VITAMIN D 600 MG-400 UNIT TABLET PO SCH (09:07)
[2018-08-22] MEDS: MULTIVITAMIN (OCUVITE) TABLET PO SCH (09:07)
[2018-08-22] MEDS: INSULIN REGULAR 100 UNIT/ML SUBCUT SCH ×4 (09:08→21:56)
[2018-08-22] MEDS: METOPROLOL SUCCINATE XL 50 MG TABLET PO SCH (09:11)
[2018-08-22] MEDS: cefTRIAXone 1,000 MG in SYRINGE 1 EACH IV SCH (09:11)
[2018-08-22] MEDS: AZITHROMYCIN 250 MG TABLET PO SCH (09:11)
[2018-08-22] MEDS: methylPREDNISolone SOD SUC 40 MG/1 ML VIAL IV SCH ×2 (09:15→21:57)
[2018-08-22] MEDS: SODIUM PHOSPHATE ENEMA 133 ML BOTTLE RECTAL PRN (11:01)
[2018-08-22] MEDS ORDERED: VENTOLIN 90 MCG PO PRN (19:20)
[2018-08-22] MEDS: guaiFENesin/DM ER 600-30 MG TABLET PO SCH (21:57)
[2018-08-22] MEDS: MAGNESIUM HYDROXIDE SUSP 30 ML UDCUP PO PRN (21:57)
[2018-08-23] MEDS: ALBUTEROL/IPRATROPIUM 3 ML NEB RESP TX SCH ×4 (01:03→19:19)
[2018-08-23 05:19] LABS: Basophils % 0.1 % (0.0-0.8); Eosinophils % 0.1 % (0.00-10.9); Hematocrit 29.1 VOL% (35.7-47.0); Hemoglobin 9.1 GM/DL (12.0-16.0); Immature Granulocytes % 0.7 %; Immature Granulocytes Absolute 0.13 #; Lymphocytes # 0.5 10*3/uL (1.4-4.0); Lymphocytes % 2.7 % (21.3-54.2); Mean Corpuscular HGB Conc 31.3 GM/DL (32-36); Mean Corpuscular Volume 79.7 FL (87-102); Mean Platelet Volume 9.7 FL (9.6-12.0); Monocytes % 3.6 % (1.7-12.7); Neutrophils % 92.8 % (38.7-73.9); Platelet Count 531 T/CUMM (130-400); Red Blood Count 3.65 MC/CUMM (3.8-5.5); Red Cell Distribution Width 17.6 % (9.3-17.3); White Blood Count 18.4 T/CUMM (4-12)
[2018-08-23 05:36] LABS: Calcium 8.7 MG/DL (8.5-10.1); Osmolality,Calculated 276.9 MOS/KG (273-304)
[2018-08-23 06:06] LABS: Lymphocytes 4 % (20-55); Segmented Neutrophils 94 % (50-85); Total Cells Counted 100
[2018-08-23 06:07] LABS: Hypochromasia 1+; Ovalocytes 2+; Platelet Estimate Increased
[2018-08-23] MEDS: INSULIN REGULAR 100 UNIT/ML SUBCUT SCH ×4 (08:51→21:22)
[2018-08-23] MEDS: cefTRIAXone 1,000 MG in SYRINGE 1 EACH IV SCH (08:52)
[2018-08-23] MEDS: FERROUS SULFATE 300 MG/5 ML UDCUP PO SCH ×2 (08:53→21:22)
[2018-08-23] MEDS: guaiFENesin 200 MG/10 ML UDCUP PO SCH ×2 (08:53→21:22)
[2018-08-23] MEDS: sitaGLIPtin 25 MG TABLET PO SCH (08:53)
[2018-08-23] MEDS: DOCUSATE SODIUM 100 MG CAPSULE PO SCH ×2 (08:53→21:22)
[2018-08-23] MEDS: CALCIUM (CARBONATE)/VITAMIN D 600 MG-400 UNIT TABLET PO SCH (08:53)
[2018-08-23] MEDS: methylPREDNISolone SOD SUC 40 MG/1 ML VIAL IV SCH (08:53)
[2018-08-23] MEDS: PANTOPRAZOLE 40 MG TABLET PO SCH ×2 (08:53→21:22)
[2018-08-23] MEDS: AZITHROMYCIN 250 MG TABLET PO SCH (08:54)
[2018-08-23] MEDS: MULTIVITAMIN (OCUVITE) TABLET PO SCH (08:54)
[2018-08-23] MEDS: METOPROLOL SUCCINATE XL 50 MG TABLET PO SCH (08:54)
[2018-08-23] MEDS: glipiZIDE 10 MG TABLET PO SCH ×2 (08:54→15:59)
[2018-08-23] MEDS: MAGNESIUM HYDROXIDE SUSP 30 ML UDCUP PO PRN (12:43)
[2018-08-23] MEDS: amLODIPine 5 MG TABLET PO SCH (12:43)
[2018-08-23] MEDS: SODIUM PHOSPHATE ENEMA 133 ML BOTTLE RECTAL PRN (12:43)
[2018-08-23] MEDS: guaiFENesin/DM ER 600-30 MG TABLET PO SCH (21:22)
[2018-08-24] MEDS: ALBUTEROL/IPRATROPIUM 3 ML NEB RESP TX SCH ×3 (00:17→13:05)
[2018-08-24] MEDS ORDERED: VENTOLIN 90 MCG INH PRN (01:10)
[2018-08-24 05:56] LABS: Basophils % 0.1 % (0.0-0.8); Eosinophils % 0.1 % (0.00-10.9); Hematocrit 30.6 VOL% (35.7-47.0); Hemoglobin 9.1 GM/DL (12.0-16.0); Immature Granulocytes % 0.9 %; Immature Granulocytes Absolute 0.12 #; Lymphocytes # 1.8 10*3/uL (1.4-4.0); Lymphocytes % 13.2 % (21.3-54.2); Mean Corpuscular HGB Conc 29.7 GM/DL (32-36); Mean Corpuscular Volume 82.3 FL (87-102); Mean Platelet Volume 9.4 FL (9.6-12.0); Monocytes % 14.9 % (1.7-12.7); Neutrophils % 70.8 % (38.7-73.9); Platelet Count 533 T/CUMM (130-400); Red Blood Count 3.72 MC/CUMM (3.8-5.5); Red Cell Distribution Width 17.8 % (9.3-17.3); White Blood Count 13.6 T/CUMM (4-12)
[2018-08-24 06:05] LABS: Calcium 8.9 MG/DL (8.5-10.1); Osmolality,Calculated 274.4 MOS/KG (273-304)
[2018-08-24] MEDS ORDERED: methylPREDNISolone SOD SUC 40 MG/1 ML VIAL IV SCH (09:00)
[2018-08-24] MEDS: INSULIN REGULAR 100 UNIT/ML SUBCUT SCH ×2 (09:58→12:58)
[2018-08-24] MEDS: FERROUS SULFATE 300 MG/5 ML UDCUP PO SCH (09:59)
[2018-08-24] MEDS: amLODIPine 5 MG TABLET PO SCH (09:59)
[2018-08-24] MEDS: MULTIVITAMIN (OCUVITE) TABLET PO SCH (09:59)
[2018-08-24] MEDS: glipiZIDE 10 MG TABLET PO SCH (09:59)
[2018-08-24] MEDS: AZITHROMYCIN 250 MG TABLET PO SCH (10:00)
[2018-08-24] MEDS: METOPROLOL SUCCINATE XL 50 MG TABLET PO SCH (10:00)
[2018-08-24] MEDS: guaiFENesin 200 MG/10 ML UDCUP PO SCH (10:01)
[2018-08-24] MEDS: PANTOPRAZOLE 40 MG TABLET PO SCH (10:01)
[2018-08-24] MEDS: CALCIUM (CARBONATE)/VITAMIN D 600 MG-400 UNIT TABLET PO SCH (10:01)
[2018-08-24] MEDS: DOCUSATE SODIUM 100 MG CAPSULE PO SCH (10:02)
[2018-08-24] MEDS: sitaGLIPtin 25 MG TABLET PO SCH (10:02)
[2018-08-24] MEDS: cefTRIAXone 1,000 MG in SYRINGE 1 EACH IV SCH (10:03)
[2018-08-24 15:49] VITALS: BP 139/92
[2018-09-10] MEDS ORDERED: CYANOCOBALAMIN 1000 MCG/1 ML VIAL IM SCH (09:00)
== END 2018-08-24 16:17 | DRG 377 ==
LOC: EDBD → EDUNIT# → N.ED 22:53 → N.EDINP 08-20 01:45 → N.2E 08-20 02:23
PROVIDERS: ADMIT Internal Medicine; ATTEND Internal Medicine

== ENCOUNTER 2021-12-10 13:11 | Inpatient (IN) ==
[2021-12-10 13:46] LABS: Basophils # 0.1 10*3/uL (0.0-0.2); Basophils % 0.8 % (0.0-0.8); Eosinophils # 0.2 10*3/uL (0.0-0.87); Eosinophils % 2.6 % (0.00-10.9); Hematocrit 30.5 VOL% (35.7-47.0); Hemoglobin 9.6 GM/DL (12.0-16.0); Immature Granulocytes % 1.2 %; Immature Granulocytes Absolute 0.09 #; Lymphocytes # 1.4 10*3/uL (1.4-4.0); Lymphocytes % 18.7 % (21.3-54.2); Mean Corpuscular HGB Conc 31.5 GM/DL (32-36); Mean Corpuscular Volume 92.7 FL (87-102); Mean Platelet Volume 9.5 FL (9.6-12.0); Monocytes # 0.8 10*3/uL (0.11-0.8); Monocytes % 10.5 % (1.7-12.7); Neutrophils % 66.2 % (38.7-73.9); Platelet Count 319 T/CUMM (130-400); Red Blood Count 3.29 MC/CUMM (3.8-5.5); Red Cell Distribution Width 16.5 % (9.3-17.3); White Blood Count 7.3 T/CUMM (4-12)
[2021-12-10 14:17] LABS: Alanine Aminotransferase 35 U/L (13-56); Alkaline Phosphatase 111 U/L (45-117); Aspartate Amino Transferase 41 U/L (0-37); Bilirubin,Total < 0.39 MG/DL (0.20-1.00); Blood Urea Nitrogen 19 MG/DL (7-18); Calcium 8.3 MG/DL (8.5-10.1); Carbon Dioxide 28 MMOL/L (21-32); Chloride 98 MMOL/L (98-107); Glucose 161 MG/DL (74-106); Osmolality,Calculated 272.2 MOS/KG (273-304); Potassium 4.6 MMOL/L (3.5-5.1); Sodium 134 MMOL/L (136-145); Total Protein 7.3 G/DL (6.4-8.2)
[2021-12-10 14:20] LABS: INR 0.9; PT Patient Result 9.9 SECS (10.1-12.1); Partial Thromboplastin Time 28.2 SECS (23.7-32.9)
[2021-12-10] MEDS ORDERED: SODIUM CHLORIDE 0.9% 1,000 ML IV STA (14:37)
[2021-12-10] MEDS ORDERED: GLUCAGON 1 MG VIAL IM PRN (15:37)
[2021-12-10] MEDS ORDERED: ACETAMINOPHEN 325 MG TABLET PO PRN (15:37)
[2021-12-10] MEDS ORDERED: hydrALAZINE 20 MG/1 ML VIAL IV PRN (15:37)
[2021-12-10] MEDS ORDERED: ONDANSETRON 4 MG/2 ML VIAL IV PRN (15:37)
[2021-12-10] MEDS ORDERED: DEXTROSE 10% 250 ML BAG IV PRN (15:42)
[2021-12-10 15:59] LABS: Folate 16.47 NG/ML (5.38-24.0)
[2021-12-10 16:09] LABS: Bilirubin,Urine Negative (Negative); Blood, Urine Negative (Negative); Glucose,Urine (UA) 50 mg/dL (Negative); Ketones,Urine Negative (Negative); Mucus,Urine Occasional /LPF (Occasional); Nitrite,Urine Negative (Negative); Protein,Urine 100 mg/dL (Negative); RBC,Urine <1 /HPF (0-4); Squamous Epithelial Cell,Urine Occasional /HPF (0-10); Urine Appearance CLEAR (Clear); Urine Color Yellow (Yellow); Urine Specific Gravity 1.014 (1.001-1.035); Urine Urobilinogen < 2.0 eU/dL (<2.0)
[2021-12-10 16:20] LABS: % Iron Saturation 48.1 % (18-50); Ferritin 57.6 ng/mL (8-252)
[2021-12-10] MEDS ORDERED: ALBUTEROL 2.5 MG/3 ML NEB RESP TX PRN (16:45)
[2021-12-10] MEDS: INSULIN LISPRO 100 UNIT/ML SUBCUT SCH ×2 (17:40→21:36)
[2021-12-10] MEDS ORDERED: FUROSEMIDE 40 MG/4 ML VIAL IV ONE (17:42)
[2021-12-10] MEDS ORDERED: MELATONIN 3 MG TABLET PO PRN (23:49)
[2021-12-11] MEDS: ALBUTEROL/IPRATROPIUM 3 ML NEB RESP TX PRN ×2 (01:25→15:32)
[2021-12-11 05:55] LABS: Basophils # 0.1 10*3/uL (0.0-0.2); Basophils % 0.8 % (0.0-0.8); Eosinophils # 0.1 10*3/uL (0.0-0.87); Eosinophils % 1.5 % (0.00-10.9); Hematocrit 28.3 VOL% (35.7-47.0); Hemoglobin 8.9 GM/DL (12.0-16.0); Immature Granulocytes % 0.5 %; Immature Granulocytes Absolute 0.04 #; Lymphocytes # 1.2 10*3/uL (1.4-4.0); Lymphocytes % 16.3 % (21.3-54.2); Mean Corpuscular HGB Conc 31.4 GM/DL (32-36); Mean Corpuscular Volume 92.8 FL (87-102); Mean Platelet Volume 9.4 FL (9.6-12.0); Monocytes # 0.9 10*3/uL (0.11-0.8); Monocytes % 12.7 % (1.7-12.7); Neutrophils % 68.2 % (38.7-73.9); Platelet Count 286 T/CUMM (130-400); Red Blood Count 3.05 MC/CUMM (3.8-5.5); Red Cell Distribution Width 16.6 % (9.3-17.3); White Blood Count 7.3 T/CUMM (4-12)
[2021-12-11 06:10] LABS: Calcium 8.4 MG/DL (8.5-10.1); Osmolality,Calculated 271.2 MOS/KG (273-304); Potassium 3.9 MMOL/L (3.5-5.1)
[2021-12-11] MEDS ORDERED: CYANOCOBALAMIN 5000 MCG SL SCH (09:00)
[2021-12-11] MEDS ORDERED: CALCIUM (CARBONATE)/VITAMIN D 600 MG-400 UNIT TABLET PO SCH (09:00)
[2021-12-11] MEDS ORDERED: [UNRECOGNIZED DRUG - OTHER] PO SCH (09:00)
[2021-12-11] MEDS: INSULIN LISPRO 100 UNIT/ML SUBCUT SCH ×4 (09:07→20:50)
[2021-12-11] MEDS ORDERED: DICLOFENAC 1% GEL 100 GM TUBE TOP PRN (09:56)
[2021-12-11] MEDS ORDERED: cloNIDine 0.1 MG TABLET PO PRN (09:56)
[2021-12-11] MEDS ORDERED: FUROSEMIDE 20 MG TABLET PO PRN (09:56)
[2021-12-11] MEDS ORDERED: ERGOCALCIFEROL 50,000 UNIT CAPSULE PO SCH (10:15)
[2021-12-11] MEDS: FUROSEMIDE 20 MG TABLET PO SCH (10:33)
[2021-12-11] MEDS: BENZONATATE 100 MG CAPSULE PO SCH ×3 (10:33→20:48)
[2021-12-11] MEDS: METOPROLOL SUCCINATE XL 50 MG TABLET PO SCH (10:33)
[2021-12-11] MEDS: amLODIPine 5 MG TABLET PO SCH (10:33)
[2021-12-11] MEDS: PANTOPRAZOLE 40 MG TABLET PO SCH (10:33)
[2021-12-11] MEDS: methylPREDNISolone SOD SUC 40 MG/1 ML VIAL IV SCH (19:02)
[2021-12-11] MEDS: POTASSIUM CHLORIDE 20 MEQ TABLET PO SCH (19:02)
[2021-12-11] MEDS: DOXYCYCLINE HYCLATE 100 MG CAPSULE PO SCH (19:02)
[2021-12-11] MEDS: allopurinoL 100 MG TABLET PO SCH (20:37)
[2021-12-11] MEDS: DOCUSATE SODIUM 100 MG CAPSULE PO SCH (20:37)
[2021-12-11] MEDS: MONTELUKAST 10 MG TABLET PO SCH (20:37)
[2021-12-11] MEDS ORDERED: OXYMETAZOLINE 0.05% NASAL SPRAY 15 ML BOTTLE BOTH NARES PRN (21:00)
[2021-12-12] MEDS: methylPREDNISolone SOD SUC 40 MG/1 ML VIAL IV SCH ×4 (01:30→17:13)
[2021-12-12 05:27] LABS: Basophils % 0.2 % (0.0-0.8); Hematocrit 30.1 VOL% (35.7-47.0); Hemoglobin 9.5 GM/DL (12.0-16.0); Immature Granulocytes % 0.9 %; Immature Granulocytes Absolute 0.05 #; Lymphocytes # 0.7 10*3/uL (1.4-4.0); Lymphocytes % 12.4 % (21.3-54.2); Mean Corpuscular HGB Conc 31.6 GM/DL (32-36); Mean Corpuscular Volume 92.6 FL (87-102); Mean Platelet Volume 9.8 FL (9.6-12.0); Monocytes # 0.1 10*3/uL (0.11-0.8); Monocytes % 1.5 % (1.7-12.7); Platelet Count 291 T/CUMM (130-400); Red Blood Count 3.25 MC/CUMM (3.8-5.5); Red Cell Distribution Width 16.1 % (9.3-17.3); White Blood Count 5.5 T/CUMM (4-12)
[2021-12-12 05:47] LABS: Calcium 8.6 MG/DL (8.5-10.1); Osmolality,Calculated 271.7 MOS/KG (273-304); Potassium 4.8 MMOL/L (3.5-5.1)
[2021-12-12] MEDS: DOCUSATE SODIUM 100 MG CAPSULE PO SCH ×2 (08:35→20:26)
[2021-12-12] MEDS: METOPROLOL SUCCINATE XL 50 MG TABLET PO SCH (08:35)
[2021-12-12] MEDS: PANTOPRAZOLE 40 MG TABLET PO SCH (08:35)
[2021-12-12] MEDS: FUROSEMIDE 20 MG TABLET PO SCH (08:36)
[2021-12-12] MEDS: amLODIPine 5 MG TABLET PO SCH (08:36)
[2021-12-12] MEDS: DOXYCYCLINE HYCLATE 100 MG CAPSULE PO SCH (08:36)
[2021-12-12] MEDS: BENZONATATE 100 MG CAPSULE PO SCH ×2 (08:36→20:26)
[2021-12-12] MEDS: FERROUS SULFATE 325 MG TABLET PO SCH (08:36)
[2021-12-12] MEDS: LEVOFLOXACIN INJ 500 MG/100 ML PREMIX IV SCH (08:37)
[2021-12-12] MEDS: INSULIN LISPRO 100 UNIT/ML SUBCUT SCH ×4 (08:38→20:27)
[2021-12-12] MEDS: POTASSIUM CHLORIDE 20 MEQ TABLET PO SCH ×2 (08:55→16:04)
[2021-12-12] MEDS: ALBUTEROL/IPRATROPIUM 3 ML NEB RESP TX PRN (13:17)
[2021-12-12] MEDS: glipiZIDE 10 MG TABLET PO SCH (16:16)
[2021-12-12] MEDS: MONTELUKAST 10 MG TABLET PO SCH (20:26)
[2021-12-12] MEDS: allopurinoL 100 MG TABLET PO SCH (20:26)
[2021-12-13] MEDS: ALBUTEROL/IPRATROPIUM 3 ML NEB RESP TX PRN (03:01)
[2021-12-13] MEDS: methylPREDNISolone SOD SUC 40 MG/1 ML VIAL IV SCH ×2 (03:17→09:19)
[2021-12-13] MEDS: glipiZIDE 10 MG TABLET PO SCH (07:29)
[2021-12-13] MEDS: FERROUS SULFATE 325 MG TABLET PO SCH (07:30)
[2021-12-13] MEDS: LEVOFLOXACIN INJ 500 MG/100 ML PREMIX IV SCH (07:31)
[2021-12-13 08:24] LABS: Basophils % 0.3 % (0.0-0.8); Eosinophils % 0.2 % (0.00-10.9); Hematocrit 30.9 VOL% (35.7-47.0); Hemoglobin 9.7 GM/DL (12.0-16.0); Immature Granulocytes % 1.1 %; Immature Granulocytes Absolute 0.14 #; Lymphocytes # 1.7 10*3/uL (1.4-4.0); Lymphocytes % 13.2 % (21.3-54.2); Mean Corpuscular HGB Conc 31.4 GM/DL (32-36); Mean Corpuscular Volume 93.6 FL (87-102); Mean Platelet Volume 9.8 FL (9.6-12.0); Monocytes # 1.2 10*3/uL (0.11-0.8); Monocytes % 9.6 % (1.7-12.7); Neutrophils % 75.6 % (38.7-73.9); Platelet Count 341 T/CUMM (130-400); Red Cell Distribution Width 16.6 % (9.3-17.3); White Blood Count 12.9 T/CUMM (4-12)
[2021-12-13 08:42] LABS: Calcium 9.1 MG/DL (8.5-10.1); Osmolality,Calculated 272.4 MOS/KG (273-304)
[2021-12-13] MEDS: amLODIPine 5 MG TABLET PO SCH (09:17)
[2021-12-13] MEDS: FUROSEMIDE 20 MG TABLET PO SCH (09:17)
[2021-12-13] MEDS: PANTOPRAZOLE 40 MG TABLET PO SCH (09:17)
[2021-12-13] MEDS: DOCUSATE SODIUM 100 MG CAPSULE PO SCH (09:17)
[2021-12-13] MEDS: INSULIN LISPRO 100 UNIT/ML SUBCUT SCH ×2 (09:17→12:27)
[2021-12-13] MEDS: POTASSIUM CHLORIDE 20 MEQ TABLET PO SCH (09:17)
[2021-12-13] MEDS: BENZONATATE 100 MG CAPSULE PO SCH (09:18)
[2021-12-13] MEDS: METOPROLOL SUCCINATE XL 50 MG TABLET PO SCH (09:18)
[2021-12-13 11:49] VITALS: BP 149/54
== END 2021-12-13 13:18 | disposition home or self-care (01) | DRG 190 ==
LOC: N.ED 13:11 → N.EDINP 13:11 → SUATTDRO 16:15 → N.3E 16:35 → SUATTDRO 12-12 09:08
PROVIDERS: ADMIT Internal Medicine; ATTEND Internal Medicine